=== PATIENT | female | born 1995 | race Caucasian/White ===

== ENCOUNTER 2017-06-20 23:44 | Emergency (ER) | payer OTHER ==
[~2017-06-20] VITALS: Ht 152.4 cm; Wt 70.5 kg
[2017-06-20 23:44] VITALS: BP 115/61
[~2017-06-20 23:44] MED LIST: NOCURR
== END 2017-06-21 02:00 | disposition left against medical advice (07) ==
LOC: EMS 23:44
DX: R19.7 Diarrhea, unspecified (principal); R10.9 Unspecified abdominal pain; R11.10 Vomiting, unspecified; Z53.21 Procedure and treatment not carried out due to patient leaving prior to being seen by health care provider

== ENCOUNTER 2019-11-07 08:48 | Emergency (ER) | payer OTHER ==
[~2019-11-07] VITALS: Ht 162.6 cm; Wt 77.3 kg
[2019-11-07 08:57] VITALS: BP 141/89
== END 2019-11-07 09:47 | disposition home or self-care (01) ==
LOC: EMS 08:52
DX: S63.501A Unspecified sprain of right wrist, initial encounter (principal); Z88.6 Allergy status to analgesic agent; Z88.5 Allergy status to narcotic agent; W19.XXXA Unspecified fall, initial encounter; Y93.89 Activity, other specified; Y92.89 Other specified places as the place of occurrence of the external cause; Y99.8 Other external cause status
CPT/HCPCS: Z7502

== ENCOUNTER 2021-07-30 12:14 | Emergency (ER) | payer MEDICAID, OTHER ==
[~2021-07-30] VITALS: Ht 152.4 cm; Wt 72.7 kg
[2021-07-30 12:19] VITALS: BP 125/78
== END 2021-07-30 15:08 | disposition left against medical advice (07) ==
LOC: EMS 12:17
DX: R07.89 Other chest pain (principal); Z53.21 Procedure and treatment not carried out due to patient leaving prior to being seen by health care provider